=== PATIENT | female | born 1990 | race Caucasian/White ===

== ENCOUNTER 2017-01-01 17:52 | Emergency (ER) | payer OTHER ==
[~2017-01-01] VITALS: Ht 167.6 cm; Wt 63.7 kg
[2017-01-01 17:55] VITALS: Ht 167.6 cm; Wt 63.7 kg
--- NOTE | 2017-01-01 19:50 | RADRPT ---
PROCEDURE: XR Foot. CLINICAL INDICATION: Right foot pain TECHNIQUE: 3 views of the right foot are available for review. COMPARISON: None available FINDINGS: There is a nondisplaced intra-articular acute avulsion fracture at the base of the fifth metatarsal. Alignment is normal. Joint spaces are preserved. Soft tissues are grossly unremarkable. IMPRESSION: 1. Small nondisplaced intra-articular avulsion fracture at the base of the fifth metatarsal. RPTAT: UU .Chavo Drake MD, Date Time Electronically viewed and signed by .Chavo Drake MD, on 01/01/2017 19:50 .K/
--- NOTE | 2017-01-01 19:50 | RADRPT ---
PROCEDURE: XR Ankle. CLINICAL INDICATION: Right ankle pain TECHNIQUE: 3 views of the right ankle were performed. COMPARISON: None. FINDINGS: There is a nondisplaced intra-articular acute avulsion fracture at the base of the fifth metatarsal. Alignment is normal. Joint spaces are preserved. Soft tissues are grossly unremarkable. IMPRESSION: 1. Small nondisplaced intra-articular avulsion fracture at the base of the fifth metatarsal. RPTAT: UU .Chavo Drake MD, Date Time Electronically viewed and signed by .Chavo Drake MD, on 01/01/2017 19:50 .K/
[2017-01-01] MEDS ORDERED: NAPR-260 PO (20:11)
--- NOTE | 2017-01-01 20:15 | ERD ---
ER Documentation Chief Complaint Chief Complaint C/O RIGHT ANKLE PAIN S/P TWISTED 2 HOURS AGO HPI She is a 26-year-old female who presents to the ED with right foot pain after sustaining an injury where she twisted her foot due to tripping over an object. She denies any falls. No pain in other areas of her foot. Denies radiation of pain. Denies numbness or tingling or weakness. She is able to ambulate but has pain with a lot of pressure. No other complaints. ROS All systems reviewed and are negative except as per history of present illness. Medications Home Meds Active Scripts Naproxen* (Naprosyn*) 500 Mg Tablet, 500 MG PO BID Y for PAIN AND/OR INFLAMMATION, #30 TAB Prov:NUVIA BECKHAM PA-C 01/01/17 Allergies Allergies: Coded Allergies: No Known Allergy (Unverified , 01/01/17) PMhx/Soc Medical and Surgical Hx: pt denies Medical Hx, pt denies Surgical Hx Hx Alcohol Use: No Hx Substance Use: No Hx Tobacco Use: No Smoking Status: Never smoker FmHx Family History: No coronary disease, No diabetes, No other Physical Exam Vitals Vital Signs Date Time Temp Pulse Resp B/P Pulse Ox O2 Delivery O2 Flow Rate FiO2 01/01/17 17:55 97.2 88 18 150/80 99 Physical Exam GENERAL: Well-developed, well-nourished female. Appears in no acute distress. HEAD: Normocephalic, atraumatic. EYES: Pupils are equally reactive bilaterally. EOMs grossly intact. No conjunctival erythema. ENT: Moist mucous membranes. No uvula deviation. No kissing tonsils. No exudates. NECK: Supple. No lymphadenopathy or thyromegaly. No meningismus. negative kernig. negative brudinski. LUNG: Clear to auscultation bilaterally. No rhonchi, wheezing, rales or coarse breath sounds. HEART: Regular rate and rhythm. No murmurs, rubs or gallops. Extremities: Equal pulses bilaterally. No peripheral clubbing, cyanosis or edema. No unilateral leg swelling. Slight ecchymosis and tenderness to the base of the fifth metatarsal on the right. Neurovascular intact. No pain at the malleoli. Negative Homans sign. No tenderness to the proximal fibula pain. No open wounds or lacerations. No step-offs or deformities. NEUROLOGIC: Alert and oriented. Moving all four extremities. 5/5 strength in all extremities. Normal speech. Steady gait. SKIN: Normal color. Warm and dry. No rashes or lesions. Capillary refill < 2 seconds Procedures/MDM ER COURSE: I kept the patient and/or family informed of laboratory and diagnostic imaging results throughout the emergency room course. MEDICAL DECISION MAKING: This is a 26-year-old female who presents with right foot pain 2 hours after sustaining an injury where she twisted her foot tripping over an object. Vital signs were reviewed. Patient is afebrile. Patient is not hypoxic. Patient is not toxic or ill-appearing. X-rays are by radiologist shows a small nondisplaced intra-articular avulsion fracture at the base of the fifth metatarsal. Patient was given or ortho shoe and crutches. Neurovascular intact post placement. Low suspicion for dislocation. Low suspicion for dislocation, septic joint, compartment syndrome, osteomyelitis, cellulitis, avascular necrosis, neurological injury, vascular injury, tendon laceration. DISCHARGE: At this time, patient is stable for discharge and outpatient management with no new complaints during the ER course. Patient was sent home with [employer], copy of imaging report and to follow-up with orthopedic. Patient will be discharged home with instructions to recheck for new or worsening symptoms such as fever, nausea, weakness, LOC and to follow up with primary care in the next 1-2 days. Patient was advised to return to the ER for any new or worsening symptoms. Plan was discussed and patient and/or family understands and agrees. Home instructions were given. Departure Diagnosis: Primary Impression: Avulsion fracture Condition: Stable Patient Instructions: Fracture, Foot Referrals: [facility] Urgent Care 7 a.m.- 11 p.m. Every Day of the Week NO APPOINTMENT OR AUTHORIZATION NEEDED Additional Instructions: Call your primary care doctor TOMORROW for an appointment during the next 1-2 days.See the doctor sooner or return here if your condition worsens before your appointment time. NUVIA BECKHAM PA-C Jan 01, 2017 20:15
== END 2017-01-01 20:45 | disposition home or self-care (01) ==
LOC: FTE 17:52
DX: S92.354A Nondisplaced fracture of fifth metatarsal bone, right foot, initial encounter for closed fracture (principal); W01.0XXA Fall on same level from slipping, tripping and stumbling without subsequent striking against object, initial encounter; Y92.9 Unspecified place or not applicable
CPT/HCPCS: 73610; 73630; Z7502